=== PATIENT | male | born 1960 | race Hispanic/Latino ===

== ENCOUNTER 2021-01-18 04:33 | Emergency (ER) | payer OTHER ==
[~2021-01-18] VITALS: Ht 170.2 cm; Wt 81.6 kg
[2021-01-18 04:38] VITALS: BP 171/112
[2021-01-18] MEDS ORDERED: FAMOTIDINE 20MG VIAL IV ONE (05:00)
[2021-01-18] MEDS ORDERED: 0.9%NACL 1000ML 1,000 ML IV ONE (05:00)
[2021-01-18] MEDS ORDERED: PANTOPRAZOLE 40 MG/VIAL IVP ONE (05:00)
[2021-01-18 05:23] LABS: BASOPHILS % (AUTO) 0.5 % (0.0-5.0); EOSINOPHILS % (AUTO) 2.7 % (0.0-8.0); HEMATOCRIT 45.5 % (42-54); LYMPHOCYTES % (AUTO) 19.2 % (21.0-51.0); MEAN CORPUSCULAR HEMOGLOBIN 29.7 pg (27.0-33.0); MEAN CORPUSCULAR HGB CONC 33.6 g/dL (32.0-36.0); MEAN CORPUSCULAR VOLUME 88.2 fL (79-99); MONOCYTES % (AUTO) 10.4 % (3.0-13.0); NEUTROPHILS % (AUTO) 66.9 % (40.0-77.0); PLATELET COUNT (AUTO) 225 K/uL (130-400); RED BLOOD CELL COUNT(AUTO) 5.16 MIL/uL (4.50-6.20); RED CELL DISTRIBUTION WIDTH 12.1 % (11.0-15.5); WHITE BLOOD COUNT (AUTO) 11.1 K/uL (4.8-10.8)
[2021-01-18 05:39] LABS: APPEARANCE,URINE Clear (CLEAR); BILIRUBIN,URINE Negative (NEGATIVE); COLOR,URINE Yellow (YELLOW); GLUCOSE, URINE (UA) Negative (NEGATIVE); KETONES,URINE Negative (NEGATIVE); LEUKOCYTE ESTERASE ,URINE Negative (NEGATIVE); NITRATE,URINE Negative (NEGATIVE); OCCULT BLOOD,URINE Negative (NEGATIVE); PH,URINE 5.5 (5.0-8.0); PROTEIN,URINE Negative (NEGATIVE)
[2021-01-18 05:53] VITALS: BP 163/98
[2021-01-18 06:10] LABS: ALCOHOL, BLOOD < 3 mg/dL (0-10)
[2021-01-18 06:11] LABS: ALANINE AMINOTRANSFERASE 140 U/L (12-78); ALBUMIN 3.7 g/dL (3.5-5.0); ASPARTATE AMINOTRANSFERASE 57 U/L (10-37); BILIRUBIN,TOTAL 1.1 mg/dL (0.2-1.0); CARBON DIOXIDE 26 mmol/L (21-32); CHLORIDE 103 mmol/L (101-111); CREATININE 0.9 mg/dL (0.5-1.5); GLOMERULAR FILTR. RATE CALC 91 mL/min (>60); GLUCOSE,RANDOM 119 mg/dL (70-105); LIPASE 80 U/L (114-286); POTASSIUM 3.8 mmol/L (3.5-5.1); SODIUM SERUM 139 mmol/L (136-145); UREA NITROGEN, BLOOD 10 mg/dL (7-18)
[2021-01-18] MEDS ORDERED: METO-296 PO (06:24)
[2021-01-18] MEDS ORDERED: PANT40TA PO (06:24)
[2021-01-18] MEDS ORDERED: ONDA4TAB10 PO (06:24)
[2021-01-18] MEDS ORDERED: LIDOCAINE HCL 2% VISCOUS 15 ML UDCUP PO ONE (06:30)
[2021-01-18] MEDS ORDERED: MAG/ALUM/SIMETH 30 ML UDCUP PO ONE (06:30)
[2021-01-18 06:54] VITALS: BP 147/82
== END 2021-01-18 06:59 | disposition home or self-care (01) ==
LOC: EDH 04:33
DX: K29.70 Gastritis, unspecified, without bleeding (principal); E86.0 Dehydration; F10.10 Alcohol abuse, uncomplicated; R07.81 Pleurodynia
CPT/HCPCS: 36415; 71045; 76705; 80053; 81003; 83690; 84484; 85025; 93005; 96374; 96375; 99285; C9113; J3490